=== PATIENT | female | born 1985 | race Caucasian/White ===

== ENCOUNTER → 2020-07-02 14:53 | Outpatient (CLI) | payer MEDICAID, SELFPAY ==
[2020-07-02 15:25] LABS: Basophils # 0.1 K/mm3 (0-0.2); Eosinophils # 0.1 K/mm3 (0.0-0.4); Eosinophils % 1.9 % (0.1-12.0); Hematocrit 47.7 % (37.0-47.0); Hemoglobin 16.2 g/dL (12.2-16.2); Lymphocytes # 3.1 K/mm3 (0.7-4.5); Lymphocytes % 47.9 % (10-50); Mean Corpuscular Hemoglobin 32.4 pg (27.0-31.2); Mean Corpuscular Volume 95.1 fl (81-99); Mean Platelet Volume 9.7 fl (7.4-10.4); Monocytes # 0.3 K/mm3 (0.1-1.0); Neutrophils # 2.9 K/mm3 (1.8-7.8); Neutrophils % 44.2 % (37.0-80.0); Platelet Count 269 K/mm3 (142-424); Red Blood Count 5.02 M/mm3 (4.20-5.40); Red Cell Distribution Width 13.8 % (11.5-17.5); White Blood Count 6.5 K/mm3 (4.8-10.8)
[2020-07-02 16:45] LABS: Alanine Aminotransferase 68 U/L (12-78); Albumin Level 4.7 g/dl (3.5-5.0); Albumin/Globulin Ratio 1.2 (1.1-1.8); Alkaline Phosphatase 112 U/L (38-126); Anion Gap 14.2 mEq/L (5-15); Aspartate Amino Transferase 61 U/L (14-36); Bilirubin,Total 0.8 mg/dl (0.2-1.3); Blood Urea Nitrogen 13 mg/dl (7-17); Calcium 10.2 mg/dl (8.4-10.2); Carbon Dioxide 27 mmol/L (22.0-30.0); Chloride 102 mmol/L (98-107); Cholesterol 192 mg/dl (140-200); Estimated Glomerular Filt Rate 82 ml/min (>60); GFR (African American) 99 ML/MIN (>60); Globulin 3.9 g/dL (1.3-3.2); Glucose 91 mg/dl (74-100); HDL Cholesterol 64 mg/dl (40-60); Potassium 5.2 mmoL/L (3.5-5.1); Sodium 138 mmol/L (136-145); Total Protein,Serum 8.6 g/dl (6.3-8.2); Triglycerides 76 mg/dl (30-150); VLDL Cholesterol 15 mg/dL (0-40)
[2020-07-02 16:56] LABS: Direct LDL Cholesterol 104.68 mg/dL (100-129)
[2020-07-02 17:02] LABS: 25-OH Vitamin D, Total 17.2 ng/mL (30-100); Free T4 (Free Thyroxine) 1.61 ng/dl (0.78-2.19)
[2020-07-02 17:16] LABS: Thyroid Stimulating Hormone 1.08 uIU/mL (0.465-4.68)
== END ==
PROVIDERS: Visit Provider Emergency Medicine
DX: R53.83 Other fatigue (principal); E55.9 Vitamin D deficiency, unspecified
CPT/HCPCS: 80053; 80061; 82306; 84439; 84443; 85025

== ENCOUNTER → 2020-07-11 08:59 | Outpatient (CLI) | payer MEDICAID, SELFPAY ==
--- NOTE | 2020-07-11 08:59 | US_ITS ---
PROCEDURE: US GALLBLADDER CLINICAL INDICATION: abdominal pain COMPARISON: No exams were available for comparison FINDINGS: Pancreas: Unremarkable/Not well seen Liver: Unremarkable. There is appropriate direction of blood flow within a non dilated portal vein. Right kidney: Unremarkable appearing. No hydronephrosis. Gallbladder: No stones are evident. There is no gallbladder wall thickening. Common duct is normal in diameter. IMPRESSION: Negative gallbladder ultrasound. No stones evident. Dictated by: Louie Dee MD 07/11/2020 16:52 Loiue Dee MD in [place] 07/11/2020 16:52
== END ==
PROVIDERS: PCP Emergency Medicine; Visit Provider Emergency Medicine
DX: R10.9 Unspecified abdominal pain (principal)
CPT/HCPCS: 76705

== ENCOUNTER → 2020-08-07 10:29 | Outpatient (CLI) | payer MEDICAID, SELFPAY | PROVIDERS: PCP Emergency Medicine; Visit Provider Emergency Medicine | DX: R10.9 Unspecified abdominal pain (principal) ==

== ENCOUNTER 2020-08-14 09:10 | Day surgery (SDC) | payer MEDICAID, SELFPAY ==
[2020-08-14 10:00] LABS: HCG Qualitative, Serum Negative (Negative)
[2020-08-14 10:36] LABS: Coronavirus 19 IgG Antibody Negative (Negative); Coronavirus 19 IgM Antibody Negative (Negative)
[2020-08-14 11:20] VITALS: BP 118/84; PULSE 76; RESP 18; TEMP 36.3; O2SAT 97; BMI 25.9
[2020-08-14 12:16] VITALS: BP 109/70; PULSE 61; RESP 18; TEMP 36.3; O2SAT 94
--- NOTE | 2020-08-14 12:22 | HMH.ANESCL ---
[facility] Anesthesia Checklist - Patient Identification Patient Identification: Arm Band - Structural Data Admitted From: Home Planned Operative Procedure/s: excision right cheek cyst Consent for Planned Operative Procedure(s) Verified: Yes Verified Documents: Surgical Consent, History and Physical - NPO Status Verified Time NPO: 00:00 - Additional verifications Anesthesia Reactions: No Hx Blood Transfusions: No Blood Transfusion Reaction: No - Airway Assessment C-Spine Mobility Assessed: Yes TMJ Mobility Assessed: Yes Dentition: Good Dentition - Neurological Assessment Level of Consciousness: Awake, Alert - Anesthesia Plan Anesthesia Risk discussed: Yes Anesthesia Plan: Verified ASA Class: II Anesthesia Type: MAC [facility] History I have reviewed the patient's past medical history: Yes Medical History: Denies:: Cancer, Diabetes Mellitus Type 1, Diabetes Mellitus Type 2, Internal Pacemaker, MRSA, Seizures *Have you ever received a pneumonia vaccine?: No *Have you received a flu vaccine this season?: No Other Medical History: Denies: Blood Transfusion Reaction Anesthesia experience/problems:: nac Other Surgeries: Yes: . No: Pacemaker Amputation: No Fractures: No - *Social History Last grade of school completed: Some college Smoking Status: Current every day smoker Tobacco Type: cigarettes # Packs/Day (cigarettes): 1 Alcohol Intake: never Substance Use Type: former substance user *Occupational Status:: employed Housing: house Household Members: spouse *Travel in the last 8 weeks: None Family Hx:: Diabetes
[2020-08-14 12:26] VITALS: BP 115/81; PULSE 62; RESP 18; O2SAT 98
[2020-08-14 12:35] VITALS: BP 129/74; PULSE 81; RESP 18; O2SAT 98
--- NOTE | 2020-08-14 12:36 | P.OP_ITS ---
Date of procedure: 08/14/20 Pre-op Diagnosis:: 1. 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 The markout measured 2.5 cm and the sloan out was incised and the lesion was identified in the subcutaneous layer. Using tenotomy scissors and dissecting forceps the lesion was carefully mobilized and removed in entirety and submitted. Bleeding was 5 cc and stopped with bipolar cautery. Surgicel snow was placed in the defect. Superior and inferior incisions were made and a tissue rearrangement geometric plastic repair was done with 5-0 nylon sutures. A Dermabond dressing was applied and the patient was sent to recovery in good general condition. Condition: stable Disposition: PACU Complications:: none
[2020-08-14 12:43] VITALS: BP 131/69; PULSE 72; RESP 18; O2SAT 97
== END 2020-08-14 12:46 | disposition home or self-care (01) ==
PROVIDERS: PCP Emergency Medicine; Visit Provider Otolaryngology
PROC: (CPT 14040; principal; 2020-08-14 11:15)
DX: L72.0 Epidermal cyst (principal); J45.909 Unspecified asthma, uncomplicated; Z79.51 Long term (current) use of inhaled steroids
CPT/HCPCS: 14040; 36415; 84703; 86328; 96374; 96375

== ENCOUNTER → 2022-12-15 13:50 | Outpatient (CLI) | payer MEDICAID, SELFPAY | PROVIDERS: PCP Emergency Medicine; Visit Provider Emergency Medicine | DX: R39.9 Unspecified symptoms and signs involving the genitourinary system (principal); B96.29 Other Escherichia coli [E. coli] as the cause of diseases classified elsewhere | CPT/HCPCS: 87086; 87088; 87186 ==

== ENCOUNTER → 2023-03-28 15:19 | Outpatient (CLI) | payer MEDICAID, SELFPAY ==
[2023-03-28 13:37] LABS: Basophils # 0.1 K/mm3 (0-0.2); Basophils % 0.7 % (0.1-2.0); Eosinophils # 0.2 K/mm3 (0.0-0.4); Eosinophils % 3.7 % (0.1-12.0); Hematocrit 47.4 % (37.0-47.0); Hemoglobin 15.4 g/dL (12.2-16.2); Lymphocytes # 2.8 K/mm3 (0.7-4.5); Lymphocytes % 42.9 % (10-50); Mean Corpuscular HGB Conc 32.5 g/dL (31.8-35.4); Mean Corpuscular Hemoglobin 31.2 pg (27.0-31.2); Mean Platelet Volume 9.4 fl (7.4-10.4); Monocytes # 0.4 K/mm3 (0.1-1.0); Monocytes % 6.4 % (1.7-9.3); Neutrophils % 46.3 % (37.0-80.0); Platelet Count 302 K/mm3 (142-424); Red Blood Count 4.94 M/mm3 (4.20-5.40); Red Cell Distribution Width 14.4 % (11.5-17.5); White Blood Count 6.4 K/mm3 (4.8-10.8)
[2023-03-28 13:43] LABS: Chloride 106 mmol/L (98-107)
[2023-03-28 13:45] LABS: Blood Urea Nitrogen 13 mg/dl (7-17); Estimated Glomerular Filt Rate 95 ml/min (>60); GFR (African American) 115 ML/MIN (>60)
[2023-03-28 13:46] LABS: Alanine Aminotransferase 76 U/L (12-78); Albumin Level 4.3 g/dl (3.5-5.0); Albumin/Globulin Ratio 1.2 (1.1-1.8); Alkaline Phosphatase 114 U/L (38-126); Aspartate Amino Transferase 81 U/L (14-36); Bilirubin,Total 0.5 mg/dl (0.2-1.3); Calcium 9.7 mg/dl (8.4-10.2); Carbon Dioxide 27 mmol/L (22.0-30.0); Cholesterol 177 mg/dl (140-200); Globulin 3.7 g/dL (1.3-3.2); Glucose 95 mg/dl (74-100); Triglycerides 90 mg/dl (30-150); VLDL Cholesterol 18 mg/dL (0-40)
[2023-03-28 13:47] LABS: HDL Cholesterol 60 mg/dl (40-60)
[2023-03-28 14:09] LABS: 25-OH Vitamin D, Total 40.2 ng/mL (30-100)
[2023-03-28 14:17] LABS: Thyroid Stimulating Hormone 2.71 uIU/mL (0.465-4.68)
[2023-03-28 14:36] LABS: Hemoglobin A1C 5.2 % (4.0-6.0)
[2023-03-28 16:40] LABS: Sodium 140 mmol/L (136-145)
== END ==
PROVIDERS: PCP Emergency Medicine; Visit Provider Emergency Medicine
DX: Z00.00 Encounter for general adult medical examination without abnormal findings (principal)
CPT/HCPCS: 80053; 80061; 82306; 83036; 84436; 84443; 85025

== ENCOUNTER → 2023-05-31 11:16 | Outpatient (CLI) | payer MEDICAID, SELFPAY ==
[2023-06-04 22:20] LABS: HBsAg Screen Negative (Negative); HCV Ab Reactive (Non Reactive); Hep A Ab, IGM Negative (Negative); Hep B Core Ab, IgM Negative (Negative)
== END ==
PROVIDERS: PCP Emergency Medicine; Visit Provider Emergency Medicine
DX: R74.8 Abnormal levels of other serum enzymes (principal)
CPT/HCPCS: 80074